=== PATIENT | female | born 1960 | race Caucasian/White ===

== ENCOUNTER 2021-05-03 12:36 | Emergency (ER) | payer SELFPAY ==
[2021-05-03] MEDS ORDERED: Bacitracin 1 PK ONE (14:29)
== END 2021-05-03 14:23 | disposition home or self-care (01) ==
LOC: ERS 12:36
DX: S81.812D Laceration without foreign body, left lower leg, subsequent encounter (principal); S81.811D Laceration without foreign body, right lower leg, subsequent encounter; S51.812D Laceration without foreign body of left forearm, subsequent encounter; S51.811D Laceration without foreign body of right forearm, subsequent encounter; S61.412D Laceration without foreign body of left hand, subsequent encounter; S61.411D Laceration without foreign body of right hand, subsequent encounter; F17.210 Nicotine dependence, cigarettes, uncomplicated; X83.8XXD Intentional self-harm by other specified means, subsequent encounter
CPT/HCPCS: 93005; 99283